=== PATIENT | male | born 1955 | race Caucasian/White ===

== ENCOUNTER 2020-10-20 14:44 | Emergency (ER) | payer BC ==
[~2020-10-20] VITALS: Ht 177.8 cm; Wt 79.6 kg
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
--- NOTE | 2020-10-20 15:46 | NUR ---
PT UPDATED ON POC, VSS. NADN. CALL LIGHT W/IN REACH.
--- NOTE | 2020-10-20 16:06 | NUR ---
PT TO CT
[2020-10-20 17:17] VITALS: BP 123/69
--- NOTE | 2020-10-20 17:18 | NUR ---
Patient discharge instructions and they have confirmed that they understand the instructions. Patient ambulatory with steady gait.
== END 2020-10-20 17:29 | disposition home or self-care (01) ==
LOC: ED 17:20
DX: S27.0XXA Traumatic pneumothorax, initial encounter (principal); S22.42XA Multiple fractures of ribs, left side, initial encounter for closed fracture; R94.31 Abnormal electrocardiogram [ECG] [EKG]; Z87.891 Personal history of nicotine dependence; X58.XXXA Exposure to other specified factors, initial encounter; Y93.89 Activity, other specified; Y92.89 Other specified places as the place of occurrence of the external cause; Y99.8 Other external cause status
CPT/HCPCS: 71045; 71250; 93005; 99285